=== PATIENT | male | born 1955 | race Caucasian/White ===

== ENCOUNTER 2016-12-21 09:30 | Outpatient (RCR) | payer BC, MEDICARE ==
[2016-09-28] VITALS (8 sets, daily range): BP systolic 120–140; BP diastolic 65–77; PULSE 67–75; TEMP 97.3–98.4
[2016-10-12] VITALS (12 sets, daily range): BP systolic 118–139; BP diastolic 64–81; PULSE 73–78; TEMP 97.3–98.6
[2016-10-26] VITALS (13 sets, daily range): BP systolic 130–141; BP diastolic 75–90; PULSE 66–75; TEMP 97.5–98.2
[2016-11-09] VITALS (13 sets, daily range): BP systolic 132–155; BP diastolic 85–92; PULSE 67–80; TEMP 97.3–98.2
[2016-11-23] VITALS (11 sets, daily range): BP systolic 121–144; BP diastolic 70–82; PULSE 67–82; TEMP 97.6–98.9
[2016-12-07] VITALS (13 sets, daily range): BP systolic 119–138; BP diastolic 64–81; PULSE 66–78; TEMP 97.4–98.6
[2016-12-21] VITALS (13 sets, daily range): BP systolic 122–149; BP diastolic 67–84; PULSE 67–78; TEMP 97.3–98.3
[~2016-12-21] VITALS: Ht 152.4 cm; Wt 162.3 kg
[~2016-12-21 09:30] MED LIST: ADVAIR 100/28 DISKUS IH; ALBUTEROL0.09 MG/A1 IH; ALPRAZOLAM0.5 MG PO; ANDROGEL1.62% TP; ASPIRIN 32325 MG/TAB PO; ASTELIN NASAL S34 ML NS; BUDEPRION XL PO; BYSTOLIC10 MG PO; BYSTOLIC20 MG PO; CELEXA40 MG PO; CITALOPRAM HYDR20 MG PO; CLEOCIN HC150 MG/CAP PO; CLEOCIN T1% TP; CPAP; DEPO-TESTOS100 MG/ML IM; Depo-Testosterone IJ; EDARB4025TAB PO; FASTIN30 MG; FLONASE NASAL S16 GM NS; FLU VACCINE; FLUCONAZOLE200 MG PO; HYZAAR 25 MG-101 TAB PO; HYZAAR 50-12.1 UDTAB PO; IBUPROFEN200 M1 PO; KLONOPIN 0.5MG0.5 MG PO; LIPITOR20 MG PO; LYRICA 100MG C100 M1 PO; LYRICA 50MG CAP50 MG PO; MOTRIN 600600 MG/TAB PO; MUCINEX 60600 MG/TA1 PO; MUCINEX 60600 MG/TAB PO; MULTIPLE VITAMI1 TA1 PO; MVI PO; NEXIUM 40MG40 MG PO; NEXIUM40 MG PO; NORCO 325 MG-51 TAB PO; NORVASC 5MG5 MG/TAB PO; PHENTERMINE15 MG PO; POLY-IRON PO; PREDNISONE20 MG PO; PRIVIGEN 200 M200 ML IV; PROAIR HFA0.09 MG/AC IH; PROVIGIL PO; PROZAC40 MG PO; RT ADVAIR 128 DISKUS IH; SALINE; SINGULAIR 110 MG/TAB PO; SINGULAIR10 MG PO; TYLENOL 500MG500 MG PO; VENTOLIN0.09 MG IH; VERAPAMIL PO; WELLBUTRIN XL300 M1 PO; XANAX 0.5MG0.5 MG PO; ZYRTEC 10MG PO; ZYRTEC 10MG10 MG PO
[2017-02-01] MEDS ORDERED: ZITHROMAX 250M250 MG PO (13:52)
[2017-05-10] MEDS ORDERED: ALDACTONE 100M100 MG PO (10:04)
[2017-05-10] MEDS ORDERED: KLONOPIN 0.5MG0.5 MG PO (10:07)
[2017-05-10] MEDS ORDERED: NEILMED SINUS R1 PKT NAS (10:12)
[2017-05-10] MEDS ORDERED: VITAMIN D32000 I1 PO (10:18)
[2017-05-10] MEDS ORDERED: ASPIRIN E.C. 8181 MG PO (10:19)
== END 2016-12-27 | disposition home or self-care (01) ==
LOC: EUO
DX: G61.81 Chronic inflammatory demyelinating polyneuritis (principal); Z45.2 Encounter for adjustment and management of vascular access device
CPT/HCPCS: J1459; J1644

== ENCOUNTER 2017-03-29 09:30 | Outpatient (RCR) | payer BC, MEDICARE ==
[2017-01-04] VITALS (11 sets, daily range): BP systolic 114–139; BP diastolic 77–88; PULSE 61–72; TEMP 97.6–98.1
[2017-01-18] VITALS (12 sets, daily range): BP systolic 122–141; BP diastolic 79–89; PULSE 71–77; TEMP 97.4–98.3
[2017-02-01] VITALS (12 sets, daily range): BP systolic 105–143; BP diastolic 68–86; PULSE 68–78; TEMP 97.8–98.8
[2017-02-16] VITALS (10 sets, daily range): BP systolic 116–142; BP diastolic 60–90; PULSE 74–82; TEMP 97.9–98.4
[2017-03-01] VITALS (12 sets, daily range): BP systolic 114–148; BP diastolic 65–92; PULSE 68–76; TEMP 97.4–199.3
[2017-03-15] VITALS (13 sets, daily range): BP systolic 114–141; BP diastolic 58–79; PULSE 80–86; TEMP 97.3–98.3
[2017-03-29] VITALS (12 sets, daily range): BP systolic 119–137; BP diastolic 71–85; PULSE 67–76; TEMP 96.7–98.5
[~2017-03-29] VITALS: Ht 152.4 cm; Wt 163.9 kg
[~2017-03-29 09:30] MED LIST changes: +ZITHROMAX 250M250 MG PO
[2017-05-10] MEDS ORDERED: ALDACTONE 100M100 MG PO (10:04)
[2017-05-10] MEDS ORDERED: KLONOPIN 0.5MG0.5 MG PO (10:07)
[2017-05-10] MEDS ORDERED: NEILMED SINUS R1 PKT NAS (10:12)
[2017-05-10] MEDS ORDERED: VITAMIN D32000 I1 PO (10:18)
[2017-05-10] MEDS ORDERED: ASPIRIN E.C. 8181 MG PO (10:19)
== END 2017-04-04 | disposition home or self-care (01) ==
LOC: EUO
DX: G61.81 Chronic inflammatory demyelinating polyneuritis (principal)
CPT/HCPCS: J1644

== ENCOUNTER → 2017-04-06 | Outpatient (CLI) | payer BC, MEDICARE ==
[~2017-04-06] MED LIST changes: +ALDACTONE 100M100 MG PO; +ASPIRIN E.C. 8181 MG PO; +NEILMED SINUS R1 PKT NAS; +VITAMIN D32000 I1 PO
== END ==
LOC: BHSO 08:49
DX: F33.42 Major depressive disorder, recurrent, in full remission (principal)

== ENCOUNTER 2017-07-05 09:30 | Outpatient (RCR) | payer BC, MEDICARE ==
[2017-04-12] VITALS (12 sets, daily range): BP systolic 118–139; BP diastolic 68–92; PULSE 66–77; TEMP 97.5–98.8
[2017-04-26] VITALS (11 sets, daily range): BP systolic 125–153; BP diastolic 71–90; PULSE 62–79; TEMP 97–98.1
[2017-05-10] VITALS (13 sets, daily range): BP systolic 111–133; BP diastolic 68–87; PULSE 66–78; TEMP 97.3–98.4
[2017-05-25] VITALS (10 sets, daily range): BP systolic 112–140; BP diastolic 47–77; PULSE 44–75; TEMP 97.7–98.6
[2017-06-07] VITALS (10 sets, daily range): BP systolic 98–115; BP diastolic 56–66; PULSE 68–76; TEMP 97–98.4
[2017-06-21] VITALS (12 sets, daily range): BP systolic 111–131; BP diastolic 54–83; PULSE 61–75; TEMP 97–99.3
[~2017-07-05] VITALS: Ht 152.4 cm; Wt 160.5 kg
[2017-07-05] VITALS (13 sets, daily range): BP systolic 106–132; BP diastolic 63–79; PULSE 66–76; TEMP 97.6–98.5
== END 2017-07-05 15:35 | disposition home or self-care (01) ==
LOC: EUO 09:30
DX: G61.81 Chronic inflammatory demyelinating polyneuritis (principal); Z79.899 Other long term (current) drug therapy
CPT/HCPCS: J1644

== ENCOUNTER → 2017-10-05 | Outpatient (CLI) | payer BC, MEDICARE | LOC: BHSO 09:04 | DX: F33.42 Major depressive disorder, recurrent, in full remission (principal) ==

== ENCOUNTER 2017-10-11 09:30 | Outpatient (RCR) | payer BC, MEDICARE ==
[2017-07-19] VITALS (12 sets, daily range): BP systolic 104–115; BP diastolic 62–75; PULSE 61–76; TEMP 96.7–98.6
[2017-08-02] VITALS (12 sets, daily range): BP systolic 122–135; BP diastolic 60–86; PULSE 69–76; TEMP 96.9–99
[2017-08-12] VITALS (10 sets, daily range): BP systolic 117–142; BP diastolic 56–72; PULSE 65–75; TEMP 98.1–98.5
[2017-08-30] VITALS (13 sets, daily range): BP systolic 106–138; BP diastolic 61–82; PULSE 61–73; TEMP 97.2–98.3
[2017-09-13] VITALS (12 sets, daily range): BP systolic 129–145; BP diastolic 79–89; PULSE 73–82; TEMP 97.5–98.6
[2017-09-27] VITALS (12 sets, daily range): BP systolic 110–137; BP diastolic 69–92; PULSE 60–78; TEMP 97–98.2
[2017-10-11] VITALS (12 sets, daily range): BP systolic 112–127; BP diastolic 63–76; PULSE 67–75; TEMP 97.7–98.9
[~2017-10-11] VITALS: Ht 152.4 cm; Wt 163.8 kg
== END 2017-10-11 15:17 | disposition home or self-care (01) ==
LOC: EUO 09:30
DX: G61.81 Chronic inflammatory demyelinating polyneuritis (principal)
CPT/HCPCS: J1459; J1644

== ENCOUNTER 2017-11-08 09:30 | Outpatient (RCR) | payer BC, MEDICARE ==
[2017-10-25] VITALS (9 sets, daily range): BP systolic 88–136; BP diastolic 40–92; PULSE 69–79; TEMP 97.8–98.1
[2017-11-08] VITALS (12 sets, daily range): BP systolic 116–141; BP diastolic 62–79; PULSE 70–83; TEMP 09
[~2017-11-08] VITALS: Ht 177.8 cm; Wt 165.1 kg
== END 2017-11-08 15:51 | disposition home or self-care (01) ==
LOC: EUO 09:30
DX: G61.81 Chronic inflammatory demyelinating polyneuritis (principal)
CPT/HCPCS: J1459; J1644

== ENCOUNTER 2018-01-05 08:04 | Day surgery (SDC) | payer BC, MEDICARE ==
[~2018-01-05] VITALS: Ht 176.5 cm; Wt 161.4 kg
[2018-01-05] VITALS (9 sets, daily range): BP systolic 127–150; BP diastolic 72–79; PULSE 77–82; TEMP 97.9–98.2
[~2018-01-05 08:04] MED LIST changes: +EDARB4012.5TAB PO
[2018-01-05] MEDS ORDERED: PRIL40 PO (09:06)
[2018-01-05 09:52] LABS: CALCIUM 9.1 mg/dL (8.4-10.2); CREATININE, serum 0.83 mg/dL (0.66-1.25); POTASSIUM 4.3 mmol/L (3.4-5.0)
[2018-01-05] MEDS ORDERED: NORCO 325 MG-7.1 TAB PO (12:39)
[2018-01-05] MEDS ORDERED: CEPHALEXIN500 M1 PO (12:40)
== END 2018-01-05 14:10 | disposition home or self-care (01) ==
LOC: SDCO 08:04
PROVIDERS: Nurse Anesthetist, Certified Registered
DX: J34.2 Deviated nasal septum (principal); J34.3 Hypertrophy of nasal turbinates; G47.33 Obstructive sleep apnea (adult) (pediatric); J45.901 Unspecified asthma with (acute) exacerbation; J30.9 Allergic rhinitis, unspecified; I10 Essential (primary) hypertension; E66.01 Morbid (severe) obesity due to excess calories; Z68.43 Body mass index [BMI] 50.0-59.9, adult; Z88.0 Allergy status to penicillin; Z88.4 Allergy status to anesthetic agent; Z79.82 Long term (current) use of aspirin; Z79.52 Long term (current) use of systemic steroids; Z90.49 Acquired absence of other specified parts of digestive tract; Z23 Encounter for immunization; Z80.1 Family history of malignant neoplasm of trachea, bronchus and lung
CPT/HCPCS: J0330; J1644; J2704; J3010; J7030

== ENCOUNTER 2018-02-14 09:30 | Outpatient (RCR) | payer BC, MEDICARE ==
[2017-11-22] VITALS (7 sets, daily range): BP systolic 128–144; BP diastolic 61–77; PULSE 71–75; TEMP 97.8–98.4
[2017-12-06] VITALS (13 sets, daily range): BP systolic 132–147; BP diastolic 68–96; PULSE 69–80; TEMP 97.8–98
[2017-12-20] VITALS (13 sets, daily range): BP systolic 120–141; BP diastolic 68–83; PULSE 64–78; TEMP 97.5–98.3
[2018-01-03] VITALS (12 sets, daily range): BP systolic 116–152; BP diastolic 64–78; PULSE 63–72; TEMP 97.7–98.4
[2018-01-17] VITALS (11 sets, daily range): BP systolic 117–138; BP diastolic 72–94; PULSE 70–90; TEMP 98.1–98.8
[2018-01-31] VITALS (12 sets, daily range): BP systolic 131–153; BP diastolic 66–88; PULSE 72–83; TEMP 97.6–98.7
[2018-02-14] VITALS (12 sets, daily range): BP systolic 127–153; BP diastolic 67–80; PULSE 74–86; TEMP 97.5–98.2
[~2018-02-14] VITALS: Ht 177.8 cm; Wt 162.0 kg
[~2018-02-14 09:30] MED LIST changes: +CEPHALEXIN500 M1 PO; +NORCO 325 MG-7.1 TAB PO; +PRIL40 PO
== END 2018-02-14 15:16 | disposition home or self-care (01) ==
LOC: EUO 09:30
DX: G61.81 Chronic inflammatory demyelinating polyneuritis (principal)
CPT/HCPCS: J1644

== ENCOUNTER → 2018-03-29 | Outpatient (CLI) | payer BC, MEDICARE | LOC: BHSO 09:02 | DX: F33.42 Major depressive disorder, recurrent, in full remission (principal) | CPT/HCPCS: G0463 ==

== ENCOUNTER 2018-05-09 09:30 | Outpatient (RCR) | payer BC, MEDICARE ==
[2018-02-28] VITALS (7 sets, daily range): BP systolic 124–137; BP diastolic 76–83; PULSE 70–81; TEMP 98.1
[2018-03-14] VITALS (13 sets, daily range): BP systolic 124–149; BP diastolic 77–97; PULSE 74–84; TEMP 97.5–98.3
[2018-03-28] VITALS (12 sets, daily range): BP systolic 121–153; BP diastolic 70–97; PULSE 66–79; TEMP 97.5–98.4
[2018-04-11] VITALS (9 sets, daily range): BP systolic 128–145; BP diastolic 68–88; PULSE 73–80; TEMP 97
[2018-04-25] VITALS (7 sets, daily range): BP systolic 123–141; BP diastolic 66–86; PULSE 75–79; TEMP 97.7–98.4
[2018-05-09] VITALS (12 sets, daily range): BP systolic 117–138; BP diastolic 63–110; PULSE 72–81; TEMP 97.6–98.4
[~2018-05-09] VITALS: Ht 177.8 cm; Wt 164.6 kg
== END 2018-05-09 14:57 | disposition home or self-care (01) ==
LOC: EUO 09:30
DX: Z45.2 Encounter for adjustment and management of vascular access device (principal); Z95.828 Presence of other vascular implants and grafts
CPT/HCPCS: J1644

== ENCOUNTER → 2018-09-27 | Outpatient (CLI) | payer BC, MEDICARE | LOC: BHSO 09:03 | DX: F33.42 Major depressive disorder, recurrent, in full remission (principal) | CPT/HCPCS: G0463 ==

== ENCOUNTER 2018-11-07 10:30 | Outpatient (RCR) | payer BC, MEDICARE ==
[2018-08-29] VITALS (13 sets, daily range): BP systolic 121–142; BP diastolic 70–91; PULSE 77–85; TEMP 97.1–98.4
[2018-09-12] VITALS (12 sets, daily range): BP systolic 128–158; BP diastolic 82–95; PULSE 70–79; TEMP 96.7–97.8
[2018-09-26] VITALS (11 sets, daily range): BP systolic 126–150; BP diastolic 74–92; PULSE 67–78; TEMP 97.8–98.2
[2018-10-10] VITALS (11 sets, daily range): BP systolic 132–155; BP diastolic 67–88; PULSE 70–80; TEMP 97–98.8
[2018-10-24] VITALS (11 sets, daily range): BP systolic 123–161; BP diastolic 78–94; PULSE 70–79; TEMP 97.9–98.4
[~2018-11-07] VITALS: Ht 177.8 cm; Wt 160.7 kg
[2018-11-07] VITALS (11 sets, daily range): BP systolic 129–150; BP diastolic 68–89; PULSE 73–81; TEMP 98.1–98.6
== END 2018-11-16 13:30 | disposition home or self-care (01) ==
LOC: EUO 10:30
DX: G61.81 Chronic inflammatory demyelinating polyneuritis (principal); Z45.2 Encounter for adjustment and management of vascular access device; Z95.828 Presence of other vascular implants and grafts; Z48.00 Encounter for change or removal of nonsurgical wound dressing
CPT/HCPCS: J1644

== ENCOUNTER 2019-02-08 10:30 | Outpatient (RCR) | payer BC, MEDICARE ==
[2018-11-28] VITALS (12 sets, daily range): BP systolic 127–148; BP diastolic 71–93; PULSE 71–75; TEMP 97.4–98.5
[2018-12-13] VITALS (7 sets, daily range): BP systolic 128–151; BP diastolic 76–89; PULSE 73–79; TEMP 98.9
[2018-12-26] VITALS (12 sets, daily range): BP systolic 121–142; BP diastolic 70–89; PULSE 75–84; TEMP 97.3–98.4
[2019-01-11] VITALS (13 sets, daily range): BP systolic 136–167; BP diastolic 75–92; PULSE 70–81; TEMP 97.8
[2019-01-25] VITALS (11 sets, daily range): BP systolic 127–155; BP diastolic 61–92; PULSE 71–81; TEMP 97.9–98.9
--- NOTE | 2019-01-25 15:58 | NUR ---
Pt VSS throughout remainder of infusion.
[~2019-02-08] VITALS: Ht 177.8 cm; Wt 164.0 kg
[2019-02-08] VITALS (12 sets, daily range): BP systolic 126–150; BP diastolic 75–95; PULSE 77–86; TEMP 97.3–98.3
[~2019-02-08 10:30] MED LIST changes: +SPIRIVA RE2.5 MCG/Ac IH; +SPIRIVA RESPIMAT4 GM IH
== END 2019-02-08 15:53 | disposition home or self-care (01) ==
LOC: EUO 10:30
DX: G61.81 Chronic inflammatory demyelinating polyneuritis (principal); Z45.2 Encounter for adjustment and management of vascular access device; Z95.828 Presence of other vascular implants and grafts; Z48.00 Encounter for change or removal of nonsurgical wound dressing
CPT/HCPCS: J1644

== ENCOUNTER → 2019-02-26 | Outpatient (CLI) | payer BC, MEDICARE ==
[2019-02-26 12:01] LABS: HEMATOCRIT 45.5 % (42.0-52.0); HEMOGLOBIN 14.7 g/dl (13.5-18.0); MEAN CELL VOLUME 84 fl (80.0-100.0); MEAN CORPUSCULAR HEMOGLOBIN 27 pg (27.0-31.0); MEAN CORPUSCULAR HGB CONC 32 g/dl (33.0-37.0); MEAN PLATELET VOLUME 10.4 fl (7.4-10.4); PLATELET COUNT 384 K/mm3 (130-400); REDCELL DISTRIBUTION WIDTH-CV 15.9 % (11.5-14.5)
== END ==
LOC: COL.LAB 11:09
PROVIDERS: Family Medicine
DX: M25.571 Pain in right ankle and joints of right foot (principal)

== ENCOUNTER → 2019-02-28 | Outpatient (CLI) | payer BC, MEDICARE ==
[2019-02-28 09:46] LABS: HEMATOCRIT 46.3 % (42.0-52.0); MEAN CELL VOLUME 84 fl (80.0-100.0); MEAN CORPUSCULAR HEMOGLOBIN 27 pg (27.0-31.0); MEAN CORPUSCULAR HGB CONC 32 g/dl (33.0-37.0); MEAN PLATELET VOLUME 10.2 fl (7.4-10.4); PLATELET COUNT 375 K/mm3 (130-400); RED BLOOD COUNT 5.53 M/mm3 (4.20-5.60)
[2019-02-28 10:08] LABS: ERYTHROCYTE SEDIMENTATION RATE 1 mm/hr (0-30)
[2019-02-28 10:17] LABS: C-REACTIVE PROTEIN 0.8 mg/dL (0.0-0.9); CALCIUM 9.4 mg/dL (8.4-10.2); CREATININE, serum 0.91 (0.66-1.25); POTASSIUM 4.3 mmol/L (3.4-5.0)
== END ==
LOC: COL.LAB 08:37
PROVIDERS: Physician Assistant Medical
DX: I73.9 Peripheral vascular disease, unspecified (principal)

== ENCOUNTER → 2019-03-30 | Outpatient (CLI) | payer BC, MEDICARE ==
[~2019-03-30] MED LIST changes: +ASPI325T6 PO
== END ==
LOC: BHSO 08:35
DX: F33.41 Major depressive disorder, recurrent, in partial remission (principal)
CPT/HCPCS: G0463

== ENCOUNTER 2019-05-17 10:30 | Outpatient (RCR) | payer BC, MEDICARE ==
[2019-02-22] VITALS (12 sets, daily range): BP systolic 123–149; BP diastolic 64–83; PULSE 75–84; TEMP 97.5–98.8
[2019-03-08] VITALS (11 sets, daily range): BP systolic 125–152; BP diastolic 69–93; PULSE 77–80; TEMP 98.5
[2019-03-22] VITALS (11 sets, daily range): BP systolic 127–170; BP diastolic 62–91; PULSE 70–78; TEMP 76–98.6
[2019-04-05] VITALS (10 sets, daily range): BP systolic 118–138; BP diastolic 71–84; PULSE 77–85; TEMP 97.6–98.2
[2019-04-19] VITALS (11 sets, daily range): BP systolic 111–132; BP diastolic 62–71; PULSE 75–85; TEMP 97.4–99.3
[2019-05-03] VITALS (12 sets, daily range): BP systolic 102–141; BP diastolic 54–79; PULSE 72–722; TEMP 97.9–986
[2019-05-17] VITALS (12 sets, daily range): BP systolic 130–164; BP diastolic 71–102; PULSE 69–85; TEMP 97–98.6
[~2019-05-17] VITALS: Ht 177.8 cm; Wt 162.5 kg
== END 2019-05-17 18:00 | disposition home or self-care (01) ==
LOC: EUO 10:30
DX: G61.81 Chronic inflammatory demyelinating polyneuritis (principal); Z79.899 Other long term (current) drug therapy
CPT/HCPCS: J1644

== ENCOUNTER 2019-08-09 10:30 | Outpatient (RCR) | payer BC, MEDICARE ==
[2019-05-31] VITALS (11 sets, daily range): BP systolic 124–139; BP diastolic 73–88; PULSE 76–81; TEMP 98.2–98.7
[2019-06-14] VITALS (12 sets, daily range): BP systolic 133–168; BP diastolic 75–100; PULSE 73–83; TEMP 97.7–98.3
[2019-06-28] VITALS (12 sets, daily range): BP systolic 119–150; BP diastolic 70–87; PULSE 77–85; TEMP 97–98.6
[2019-07-12] VITALS (11 sets, daily range): BP systolic 131–144; BP diastolic 74–90; PULSE 68–80; TEMP 97.5–98.4
[2019-07-26] VITALS (10 sets, daily range): BP systolic 114–145; BP diastolic 65–79; PULSE 72–80; TEMP 97.9
[~2019-08-09] VITALS: Ht 177.8 cm; Wt 158.6 kg
[2019-08-09] VITALS (14 sets, daily range): BP systolic 108–130; BP diastolic 45–82; PULSE 77–91; TEMP 98.2–98.9
[~2019-08-09 10:30] MED LIST changes: +ADVIL200 MG PO; -ASPI325T6 PO; +SAXENDA6 MG/ML SQ; +VITAMIN D31000 I1 PO; -VITAMIN D32000 I1 PO; +ZOCOR 20MG20 MG PO
[2019-08-23] MEDS ORDERED: BREO IH (11:56)
== END 2019-08-20 18:00 | disposition home or self-care (01) ==
LOC: EUO 10:30
DX: G61.81 Chronic inflammatory demyelinating polyneuritis (principal); Z79.899 Other long term (current) drug therapy
CPT/HCPCS: J1459; J1644

== ENCOUNTER → 2019-09-25 | Outpatient (CLI) | payer MEDICARE, BC ==
[~2019-09-25] MED LIST changes: +BREO IH
== END ==
LOC: BHSO 15:18
DX: F33.42 Major depressive disorder, recurrent, in full remission (principal)
CPT/HCPCS: G0463

== ENCOUNTER 2019-10-04 10:30 | Outpatient (RCR) | payer BC, MEDICARE ==
[2019-08-23] VITALS (12 sets, daily range): BP systolic 124–159; BP diastolic 83–97; PULSE 79–92; TEMP 97.2–98.6
[2019-09-06] VITALS (12 sets, daily range): BP systolic 137–171; BP diastolic 81–107; PULSE 77–90; TEMP 97.1–98.7
[2019-09-20] VITALS (11 sets, daily range): BP systolic 95–135; BP diastolic 51–88; PULSE 80–101; TEMP 97.9
[~2019-10-04] VITALS: Ht 177.8 cm; Wt 157.4 kg
[~2019-10-04 10:30] MED LIST changes: -VITAMIN D31000 I1 PO; +VITAMIND3 5000 PO
== END 2019-10-04 14:39 | disposition home or self-care (01) ==
LOC: EUO 10:30
DX: G61.81 Chronic inflammatory demyelinating polyneuritis (principal); Z79.899 Other long term (current) drug therapy
CPT/HCPCS: J1644

== ENCOUNTER 2019-11-16 09:00 | Outpatient (RCR) | payer BC ==
[2019-10-04] VITALS (12 sets, daily range): BP systolic 125–150; BP diastolic 75–85; PULSE 81–102; TEMP 97.9–98.9
[2019-10-19] VITALS (10 sets, daily range): BP systolic 104–127; BP diastolic 72–84; PULSE 84–97; TEMP 97.3–98.5
[2019-11-01] VITALS (12 sets, daily range): BP systolic 124–137; BP diastolic 77–90; PULSE 82–96; TEMP 97–98.6
[~2019-11-16] VITALS: Ht 177.8 cm; Wt 155.5 kg
[2019-11-16] VITALS (11 sets, daily range): BP systolic 117–134; BP diastolic 64–86; PULSE 79–95; TEMP 97.6–98.6
== END 2019-11-16 14:18 | disposition home or self-care (01) ==
LOC: EUO 09:00
DX: G61.81 Chronic inflammatory demyelinating polyneuritis (principal); Z79.899 Other long term (current) drug therapy
CPT/HCPCS: J1644

== ENCOUNTER → 2020-03-26 | Outpatient (CLI) | payer MEDICARE, BC ==
[~2020-03-26] MED LIST changes: +TRELEGY ELLIPT1 EACH IH; +VICTOZA6 MG/ML SQ
== END ==
LOC: BHSO 10:00
DX: F41.1 Generalized anxiety disorder (principal)
CPT/HCPCS: G0463

== ENCOUNTER 2020-05-29 10:30 | Outpatient (RCR) | payer MEDICARE, BC ==
[2020-03-06] VITALS (11 sets, daily range): BP systolic 125–150; BP diastolic 78–97; PULSE 89–95; TEMP 97.4–99.3
[2020-03-20] VITALS (12 sets, daily range): BP systolic 127–161; BP diastolic 73–94; PULSE 82–87; TEMP 97.5–97.8
--- NOTE | 2020-03-20 10:00 | NUR ---
Dr. Madera, Radiologist was able to verify placement but unable to get port to allow normal saline to be injected into the port to verify blood return. This RN did attempt access again with another 1inch needle down in Radiology with Dr. Madera present and Iván Jesus. This RN was unsuccessful. Dr. Madera spoke with Dr. Barrios in regards to port not allowing saline to be pushed forward to allow blood return. Dr. Barrios's nurse will move forward with replacing port and his nurse will contact the pt. Pt aware. Pt's called and she is aware. Dr. Dunlap's clinic nurse aware of above.
--- NOTE | 2020-03-20 11:53 | NUR ---
This RN is having difficulty accessing pt's port. Lena RN and Herminia Mars RN attempted as well. All three nurses are unable to push saline once port is accessed with [address] Dunlap called by this RN and gathered a 2view, PA/LAT Chest Xray order at 1123. Iván Ruano arrived and performed xray. This RN gave phone ext and pt's port information for the Radiologist. Pt would like to wait results of xray before accessing PIV for IVIG therapy. Iván Ruano aware.
--- NOTE | 2020-03-20 18:52 | NUR ---
PT STATED THAT DR POTTER'S OFFICE CALLED AND THEY HAVE SCHEDULED HIS SURGERY FOR 04/01/2020. PT WAS INSTRUCTED FROM OFFICE TO FOLLOW NEW COVID-19 PROTOCOL PRIOR TO SURGERY.
[2020-04-03] VITALS (12 sets, daily range): BP systolic 129–145; BP diastolic 82–90; PULSE 80–93; TEMP 97.7–98.8
[2020-04-17] VITALS (12 sets, daily range): BP systolic 125–141; BP diastolic 77–88; PULSE 72–76; TEMP 98.9–99.2
[2020-05-01] VITALS (11 sets, daily range): BP systolic 113–141; BP diastolic 68–95; PULSE 70–80; TEMP 97.8–98.8
[2020-05-15] VITALS (8 sets, daily range): BP systolic 118–131; BP diastolic 65–80; PULSE 67–88; TEMP 98.5–98.6
[~2020-05-29] VITALS: Ht 177.8 cm; Wt 155.5 kg
[2020-05-29] MEDS ORDERED: DENTA 5000 PLUS1.1% DT (12:36)
[2020-05-29] MEDS ORDERED: CPAP (12:37)
== END 2020-05-29 10:50 | disposition home or self-care (01) ==
LOC: EUO 10:30
DX: G61.81 Chronic inflammatory demyelinating polyneuritis (principal); R51 Headache
CPT/HCPCS: J1569; J1644; Q9967

== ENCOUNTER 2020-08-07 10:30 | Outpatient (RCR) | payer MEDICARE, BC ==
[2020-05-29] VITALS (12 sets, daily range): BP systolic 122–145; BP diastolic 64–90; PULSE 69–83; TEMP 97.8–98.4
[2020-06-12] VITALS (12 sets, daily range): BP systolic 121–147; BP diastolic 71–85; PULSE 72–80; TEMP 97.8–98.1
[2020-06-26] VITALS (12 sets, daily range): BP systolic 120–138; BP diastolic 71–87; PULSE 72–77; TEMP 98.7–98.8
[2020-07-10] VITALS (12 sets, daily range): BP systolic 129–156; BP diastolic 78–97; PULSE 75–82; TEMP 98.3
[2020-07-24] VITALS (11 sets, daily range): BP systolic 119–158; BP diastolic 75–97; PULSE 74–83; TEMP 98–98.7
[2020-08-07] VITALS (11 sets, daily range): BP systolic 108–146; BP diastolic 55–88; PULSE 71–84; TEMP 97.2–98.1
[~2020-08-07] VITALS: Ht 177.8 cm; Wt 158.1 kg
[~2020-08-07 10:30] MED LIST changes: +DENTA 5000 PLUS1.1% DT
[2020-09-04] MEDS ORDERED: VICTOZA6 MG/ML SQ (11:01)
== END 2020-08-21 07:01 | disposition home or self-care (01) ==
LOC: EUO 10:30
DX: G61.81 Chronic inflammatory demyelinating polyneuritis (principal); Z79.899 Other long term (current) drug therapy; Z95.9 Presence of cardiac and vascular implant and graft, unspecified
CPT/HCPCS: J1569; J1644

== ENCOUNTER → 2020-09-16 | Outpatient (CLI) | payer MEDICARE, BC | LOC: COL.LAB 08:00 → SDCO 09-19 09:15 → EDSTATUS 09-19 09:15 | DX: Z12.11 Encounter for screening for malignant neoplasm of colon (principal); Z20.828 Contact with and (suspected) exposure to other viral communicable diseases ==

== ENCOUNTER → 2020-09-18 | Outpatient (CLI) | payer MEDICARE, BC | LOC: COL.VAS 10:06 | DX: M79.89 Other specified soft tissue disorders (principal); R53.83 Other fatigue ==

== ENCOUNTER → 2020-09-24 | Outpatient (CLI) | payer MEDICARE, BC | LOC: BHSO 10:05 | DX: F33.42 Major depressive disorder, recurrent, in full remission (principal) | CPT/HCPCS: G0463 ==

== ENCOUNTER 2020-10-15 10:30 | Outpatient (RCR) | payer MEDICARE, BC ==
[2020-08-21] VITALS (12 sets, daily range): BP systolic 123–150; BP diastolic 74–89; PULSE 67–77; TEMP 97.2–98.4
[2020-09-04] VITALS (11 sets, daily range): BP systolic 119–154; BP diastolic 66–89; PULSE 72–87; TEMP 97.7–98.1
[2020-09-18] VITALS (14 sets, daily range): BP systolic 117–138; BP diastolic 55–78; PULSE 80–94; TEMP 98.4
[2020-10-02] VITALS (11 sets, daily range): BP systolic 120–132; BP diastolic 78–85; PULSE 64–92; TEMP 98.1–98.4
[2020-10-15] VITALS (14 sets, daily range): BP systolic 13–152; BP diastolic 9–102; PULSE 81–98; TEMP 98.5
[~2020-10-15] VITALS: Ht 177.8 cm; Wt 160.0 kg
--- NOTE | 2020-10-22 17:00 | NUR ---
Left message for discontinue order
== END 2020-10-15 15:03 | disposition home or self-care (01) ==
LOC: EUO 10:30
DX: Z79.899 Other long term (current) drug therapy (principal); Z95.9 Presence of cardiac and vascular implant and graft, unspecified
CPT/HCPCS: J1569; J1644